=== PATIENT | female | born 2000 | race American Indian/Alaskan Native ===

== ENCOUNTER 2020-06-01 08:58 | Emergency (ER) | payer SELFPAY ==
--- NOTE | 2020-06-01 09:55 | Emergency Department Report ---
Blank Doc - Documentation Documentation: 20-year-old F [place] female with, department complaining of left lower quadr ant abdominal pain and a cramping sensation associated with nausea but no vomiting reports no diarrhea no constipation. She denies any possibility for she reports no urinary symptoms. This initial assessment/diagnostic orders/clinical plan/treatment(s) is/are subject to change based on patients health status, clinical progression and re- assessment by fellow clinical providers in the ED. Further treatment and workup at subsequent clinical providers discretion. Patient/guardian urged not to elope from the ED as their condition may be serious if not clinically assessed and managed. Initial orders include: Labs and a serum hCG
[2020-06-01 10:11] LABS: Bilirubin,Urine NEG (Negative); Blood,Urine NEG (Negative); Color,Urine Amber (Yellow); Mucus,Urine 3+ /HPF
[2020-06-01 10:17] LABS: HCG Qualitative,Urine Negative (Negative)
[2020-06-01] MEDS ORDERED: AZITHROMYCIN 250 MG TAB PO ONE (10:23)
[2020-06-01] MEDS ORDERED: KETOROLAC 60 MG/2 ML INJ IM ONE (10:23)
[2020-06-01] MEDS ORDERED: LIDOCAINE-MPF (1%) 10 MG/1 ML VIAL 5 ML INFILTRATI ONE (10:23)
[2020-06-01 10:24] VITALS: BP 132/76
--- NOTE | 2020-06-01 10:42 | Emergency Department Report ---
ED Female HPI - General Chief complaint: Abdominal Pain Stated complaint: ABD PAIN Time Seen by Provider: 06/01/20 10:06 Source: patient Mode of arrival: Ambulatory Limitations: No Limitations - History of Present Illness Initial comments: 20-year-old female with a past medical history of asthma presents to the hospital complaining of left lower quadrant abdominal pain since yesterday. Pain is intermittent and moderate in intensity. Worse with palpation. No alleviating factors. Positive associated nausea today without vomiting. Patient reports vaginal discharge. Patient states she currently is having unprotected sex with her boyfriend. She found her boyfriend recently prescribed antibiotics and looked up the name on the Internet and saw that it was used to treat STD/UTIs. She did not confront her boyfriend about the diagnosis. Patient denies fever, dysuria, or diarrhea - Related Data Previous Rx's Medication Instructions Recorded Last Taken Type Ibuprofen [Motrin] 600 mg PO Q8H PRN #20 tablet 06/01/20 Unknown Rx Ondansetron [Zofran Odt] 4 mg PO Q8HR PRN #14 tab.rapdis 06/01/20 Unknown Rx metroNIDAZOLE [Flagyl] 500 mg PO Q12HR #14 tab 06/01/20 Unknown Rx Allergies Allergy/AdvReac Type Severity Reaction Status Date / Time No Known Allergies Allergy Unverified 06/01/20 09:14 ED Review of Systems ROS: Stated complaint: ABD PAIN Other details as noted in HPI Comment: All other systems reviewed and negative ED Past Medical Hx - Past Medical History Hx Asthma: Yes - Surgical History Past Surgical History?: No - Social History Smoking Status: Never Smoker Substance Use Type: None - Medications Home Medications: Home Medications Medication Instructions Recorded Confirmed Last Taken Type Ibuprofen [Motrin] 600 mg PO Q8H PRN #20 tablet 06/01/20 Unknown Rx Ondansetron [Zofran Odt] 4 mg PO Q8HR PRN #14 tab.rapdis 06/01/20 Unknown Rx metroNIDAZOLE [Flagyl] 500 mg PO Q12HR #14 tab 06/01/20 Unknown Rx ED Physical Exam - General Limitations: No Limitations - Other Other exam information: General: No acute distress Head: Atraumatic Eyes: normal appearance ENT: Moist mucous membranes Neck: Normal appearance, no midline tenderness Chest: Clear to auscultation bilaterally CV: Regular rate and rhythm Abdomen: Soft, normal bowel sounds, mild left lower quadrant tenderness, nondistended, no rebound or guarding : No external vaginal lesions, clear white mild fishy odor discharge. No CMT or adnexal tenderness Back: Normal inspection Extremity: Normal inspection, full range of motion Neuro: Alert O x 3, no facial asymmetry, speech clear, no gross motor sensory deficit Psych: Appropriate behavior Skin: No rash ED Course Vital Signs 06/01/20 06/01/20 06/01/20 09:14 09:50 10:23 Temperature 99.2 F Pulse Rate 84 88 Respiratory 18 16 16 Rate Blood Pressure 153/91 Blood Pressure 132/76 [Right] O2 Sat by Pulse 98 99 99 Oximetry ED Medical Decision Making - Medical Decision Making Patient presents to the hospital vaginal discharge, abdominal pain, nausea, and suspicion that her boyfriend has been recently treated for STD. Wet prep positive for clue cells. Patient empirically treated for gonorrhea chlamydia while cultures are pending. Toradol for pain. Flagyl prescription will be provided. Outpatient CDL A DRIVER follow-up encouraged Critical Care Time: No Critical care attestation.: If time is entered above; I have spent that time in minutes in the direct care of this critically ill patient, excluding procedure time. ED Disposition Clinical Impression: Bacterial vaginosis, STD exposure, Lower abdominal pain Disposition: DC- TO HOME OR SELFCARE Is pt being admited?: No Does the pt Need Aspirin: No Condition: Stable Instructions: Abdominal Pain (ED), Bacterial Vaginosis (ED), Bacterial Vaginosis, Safe Sex Additional Instructions: Take the medication as prescribed. Follow-up with your doctor or doctor/clinic provided. Health department information has also been provided as an option for additional STD testing. Return if symptoms worsen as indicated by your discharge instructions. Your gonorrhea and Chlamydia tests have been sent and take 2-3 days to result. You may obtain your results by going to medical records with your photo ID or your follow-up physician may request the results be sent to his or her office with your written permission. You were treated for gonorrhea and chlamydia today in the ER. Prescriptions: metroNIDAZOLE [Flagyl] 500 mg PO Q12HR #14 tab Ibuprofen [Motrin] 600 mg PO Q8H PRN #20 tablet PRN Reason: Pain Ondansetron [Zofran Odt] 4 mg PO Q8HR PRN #14 tab.rapdis PRN Reason: Nausea And Vomiting Referrals: PRIMARY CARE, [Primary Care Provider] - 3-[address] [facility] [Provider Group] - 3-5 Days [facility] [Outside] - 3-5 Days RAVINDRA CARL JR, MD [Staff Physician] - 3-5 Days (survey project manager) Forms: STI Treatment and Prevention Time of Disposition: 10:49
[2020-06-01] MEDS ORDERED: ONDANSETRON 4 MG ODT TAB PO ONE (10:57)
== END 2020-06-01 11:08 | disposition home or self-care (01) ==
LOC: ED 08:58
DX: N76.0 Acute vaginitis (principal); R10.32 Left lower quadrant pain; J45.909 Unspecified asthma, uncomplicated; Z20.2 Contact with and (suspected) exposure to infections with a predominantly sexual mode of transmission; Z79.899 Other long term (current) drug therapy
CPT/HCPCS: 81001; 81025; 87210; 87591; 96372; 99283; J0696; J1885; Q0162